=== PATIENT | male | born 1930 | race Caucasian/White ===

== ENCOUNTER → 2016-08-11 | Outpatient (CLI) | payer MEDICARE, OTHER ==
--- NOTE | 2016-08-11 12:12 | RADRPT ---
PROCEDURE: XR Right hip and pelvis. CLINICAL INDICATION: Right hip pain and pelvic pain. TECHNIQUE: 3 views. Frontal pelvis. Frontal and lateral right hip. COMPARISON: 03/30/2015. FINDINGS: There is no fracture or dislocation. The soft tissues are normal. There are degenerative changes of the right hip with joint space narrowing and osteophytes. There a re mild degenerative changes of the left hip with osteophytes. There is no lytic or blastic lesion. Surgical clips are present in the pelvis. 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 IMPRESSION: 1. Moderate degenerative changes of the right hip. 2. Mild degenerative changes of the left hip. 3. Surgical clips in the pelvis. RPTAT: QQ .Oumar Jensen MD, MD Date Time Electronically viewed and signed by .Oumar Jensen MD, on 08/11/2016 12:11 .R/
== END | disposition home or self-care (01) ==
LOC: HKI 08:37
PROVIDERS: ATTEND Orthopaedic Surgery
DX: M54.16 Radiculopathy, lumbar region (principal); M51.36 Other intervertebral disc degeneration, lumbar region; M41.26 Other idiopathic scoliosis, lumbar region; Z96.653 Presence of artificial knee joint, bilateral
CPT/HCPCS: 73502; G0463